=== PATIENT | male | born 1970 | race Caucasian/White ===

== ENCOUNTER 2021-10-18 11:27 | Inpatient (IN) | payer SELFPAY ==
[2021-10-18 11:58] VITALS: BMI 21.2
[2021-10-18] MEDS ORDERED: MAG HYDROX/AL HYDROX/SIMETH 30 ML UNIT-DOSE CUP PO PRN (12:27)
[2021-10-18] MEDS ORDERED: MENTHOL/PHENOL 1 EACH UD MM PRN (12:27)
[2021-10-18] MEDS ORDERED: BISMUTH SUBSALICYLATE 524 MG/30 ML PO PRN (12:27)
[2021-10-18] MEDS ORDERED: METHOCARBAMOL 500 MG TABLET PO PRN (12:27)
[2021-10-18] MEDS ORDERED: IBUPROFEN 400 MG TABLET (FP) PO PRN (12:27)
[2021-10-18] MEDS ORDERED: chlordiazePOXIDE HCL 25 MG CAPSULE PO ONE (12:27)
[2021-10-18] MEDS ORDERED: MAGNESIUM CITRATE 300 ML BOTTLE PO PRN (12:27)
[2021-10-18] MEDS ORDERED: chlordiazePOXIDE HCL 25 MG CAPSULE PO PRN (12:27)
[2021-10-18] MEDS ORDERED: ONDANSETRON *ODT* 4 MG TABLET SL PRN (12:27)
[2021-10-18] MEDS ORDERED: MAGNESIUM HYDROX 2400MG/30ML ORAL SUSPENSION 30 ML CUP PO PRN (12:27)
[2021-10-18] MEDS ORDERED: NICOTINE 10 MG CARTRIDGE (INHALER) IH PRN (12:27)
[2021-10-18] MEDS ORDERED: ACETAMINOPHEN 325 MG TABLET (FP) PO PRN ×2 (12:27)
[2021-10-18] MEDS ORDERED: cloNIDine HCL 0.1 MG TABLET PO PRN (12:49)
[2021-10-18] MEDS ORDERED: methaDONE HCL 10 MG TABLET (FOR DETOX USE ONLY) PO ONE (12:49)
[2021-10-18] MEDS ORDERED: hydrOXYzine PAMOATE 25 MG CAPSULE (FP) PO SCH (14:00)
[2021-10-18] MEDS: PRENATAL VITAMINS W/ FOLIC ACID TABLET (FP) PO SCH (15:30)
[2021-10-18] MEDS: chlordiazePOXIDE HCL 25 MG CAPSULE PO SCH ×2 (18:28→22:29)
[2021-10-18] MEDS: THIAMINE HCL 100 MG TABLET (FP) PO SCH (22:29)
[2021-10-18] MEDS: MELATONIN 5 MG TABLETS PO SCH (22:29)
[2021-10-19] MEDS: chlordiazePOXIDE HCL 25 MG CAPSULE PO SCH ×4 (05:42→22:16)
[2021-10-19] MEDS ORDERED: methaDONE HCL 10 MG TABLET (FOR DETOX USE ONLY) ONE (09:43)
[2021-10-19] MEDS: PRENATAL VITAMINS W/ FOLIC ACID TABLET (FP) PO SCH (10:20)
[2021-10-19] MEDS: THIAMINE HCL 100 MG TABLET (FP) PO SCH (22:15)
[2021-10-19] MEDS: MELATONIN 5 MG TABLETS PO SCH (22:16)
[2021-10-20] MEDS: chlordiazePOXIDE HCL 25 MG CAPSULE PO SCH ×4 (05:46→22:10)
[2021-10-20] MEDS ORDERED: MODERNA COVID-19 VACC,MRNA/PF 50 MCG/0.25 ML EACH IM ONE (10:00)
[2021-10-20] MEDS ORDERED: methaDONE HCL 10 MG TABLET (FOR DETOX USE ONLY) PO ONE (10:00)
[2021-10-20] MEDS: PRENATAL VITAMINS W/ FOLIC ACID TABLET (FP) PO SCH (10:19)
[2021-10-20 12:31] LABS: HEMATOCRIT 44.5 % (35.4-49); HEMOGLOBIN 14.5 GM/dL (11.7-16.9); MCH 27.6 pg (25.7-33.7); MCHC 32.6 g/dl (32.0-35.9); MEAN CELL VOLUME 84.9 fl (80-96); MEAN PLT VOLUME 7.4 fl (7.5-11.1); PLATELET COUNT 463 10^3/uL (134-434); RBC 5.25 M/mm3 (4.00-5.60); RDW 13.6 % (11.9-15.9); WHITE BLOOD COUNT 7.2 K/mm3 (4.0-10.0)
[2021-10-20 12:50] LABS: CALCIUM 9.6 mg/dL (8.5-10.1)
[2021-10-20 12:51] LABS: ALBUMIN 3.6 g/dl (3.4-5.0)
[2021-10-20 12:55] LABS: BLOOD UREA NITROGEN 13.4 mg/dL (7-18)
[2021-10-20 12:58] LABS: CREATININE 0.9 mg/dL (0.55-1.3)
[2021-10-20 13:00] LABS: BILIRUBIN,TOTAL 0.3 mg/dL (0.2-1)
[2021-10-20 13:01] LABS: TOT PROT 6.7 g/dl (6.4-8.2)
[2021-10-20] MEDS: THIAMINE HCL 100 MG TABLET (FP) PO SCH (22:12)
[2021-10-20] MEDS: MELATONIN 5 MG TABLETS PO SCH (22:12)
[2021-10-21] MEDS ORDERED: chlordiazePOXIDE HCL 10 MG CAPSULE PO PRN
[2021-10-21] MEDS: chlordiazePOXIDE HCL 10 MG CAPSULE PO SCH ×4 (05:50→22:51)
[2021-10-21] MEDS ORDERED: methaDONE HCL 10 MG TABLET (FOR DETOX USE ONLY) ONE (08:58)
[2021-10-21] MEDS: PRENATAL VITAMINS W/ FOLIC ACID TABLET (FP) PO SCH (10:21)
[2021-10-21] MEDS: MELATONIN 5 MG TABLETS PO SCH (22:50)
[2021-10-21] MEDS: THIAMINE HCL 100 MG TABLET (FP) PO SCH (22:50)
[2021-10-22] MEDS ORDERED: chlordiazePOXIDE HCL 10 MG CAPSULE PO SCH (05:00)
[2021-10-22 09:24] VITALS: BP 113/63; PULSE 96; TEMP 97.6
[2021-10-22] MEDS ORDERED: methaDONE HCL 10 MG TABLET (FOR DETOX USE ONLY) PO ONE (10:00)
[2021-10-22] MEDS: PRENATAL VITAMINS W/ FOLIC ACID TABLET (FP) PO SCH (10:19)
[2021-10-23] MEDS ORDERED: chlordiazePOXIDE HCL 10 MG CAPSULE PO ONE (05:00)
== END 2021-10-22 11:13 | disposition home or self-care (01) | DRG 773 ==
LOC: YASAS 11:27 → Y3N 12:57
PROVIDERS: ADMIT Allergy & Immunology; ATTEND Allergy & Immunology
PROC: HZ2ZZZZ Detoxification Services for Substance Abuse Treatment (ICD-10-PCS; principal; 2021-10-18)
DX: F11.23 Opioid dependence with withdrawal (principal); F10.230 Alcohol dependence with withdrawal, uncomplicated; F14.20 Cocaine dependence, uncomplicated; F12.20 Cannabis dependence, uncomplicated; F17.210 Nicotine dependence, cigarettes, uncomplicated; F31.9 Bipolar disorder, unspecified; F19.24 Other psychoactive substance dependence with psychoactive substance-induced mood disorder; I25.2 Old myocardial infarction; R03.1 Nonspecific low blood-pressure reading; R10.814 Left lower quadrant abdominal tenderness; Z86.73 Personal history of transient ischemic attack (TIA), and cerebral infarction without residual deficits; Z56.0 Unemployment, unspecified; Z59.00 Homelessness unspecified
CPT/HCPCS: 36415; 80053; 85027; 86780; 93005; 93010; C9803; U0003; U0005

== ENCOUNTER 2023-08-03 08:16 | Inpatient (IN) | payer OTHER ==
[2023-08-03 09:21] VITALS: BMI 19.8
[2023-08-03] MEDS ORDERED: ACETAMINOPHEN 325 MG TABLET (FP) PO PRN (10:27)
[2023-08-03] MEDS ORDERED: MAGNESIUM HYDROX 2400MG/30ML ORAL SUSPENSION 30 ML CUP PO PRN (10:27)
[2023-08-03] MEDS ORDERED: NALOXONE HCL 0.4 MG/ML VIAL IM PRN (10:27)
[2023-08-03] MEDS ORDERED: POLYETHYLENE GLYCOL (HEALTHYLAX) 3350 17 GM PACKET PO PRN (10:27)
[2023-08-03] MEDS ORDERED: hydrOXYzine PAMOATE 25 MG CAPSULE (FP) PO PRN (10:27)
[2023-08-03] MEDS ORDERED: NICOTINE POLACRILEX 2 MG GUM BUC PRN (10:27)
[2023-08-03] MEDS ORDERED: guaiFENesin 600 MG TABLET.ER (FP) PO PRN (10:27)
[2023-08-03] MEDS ORDERED: NALOXONE HCL (KLOXXADO) 8 MG SPRAY NS PRN (10:27)
[2023-08-03] MEDS ORDERED: MAG HYDROX/AL HYDROX/SIMETH 30 ML UNIT-DOSE CUP PO PRN (10:27)
[2023-08-03] MEDS ORDERED: IBUPROFEN 400 MG TABLET (FP) PO PRN (10:27)
[2023-08-03] MEDS ORDERED: IBUPROFEN 600 MG TABLET (FP) PO PRN (10:27)
[2023-08-03] MEDS ORDERED: BENZOCAINE/MENTHOL (CHLORASEPTIC ) LOZENGE MM PRN (10:27)
[2023-08-03] MEDS ORDERED: COLLOIDAL OATMEAL 1 BAR EACH TP PRN (10:27)
[2023-08-03] MEDS ORDERED: LOPERAMIDE HCL 2 MG CAPSULE PO PRN (10:27)
[2023-08-03] MEDS ORDERED: BENZONATATE 200 MG CAPSULE PO PRN (10:27)
[2023-08-03] MEDS ORDERED: TUBERCULIN PPD 5 TU/0.1ML VIAL ID ONE (13:33)
[2023-08-03 13:52] VITALS: BP 110/68; PULSE 84; RESP 18; TEMP 97.5
[2023-08-03] MEDS ORDERED: TUBERCULIN PPD 5 TU/0.1ML SYRINGE (IN PATIENT USE ONLY) ID ONE (14:00)
[2023-08-03] MEDS ORDERED: THIAMINE HCL 100 MG TABLET (FP) PO SCH (22:00)
[2023-08-03] MEDS ORDERED: MELATONIN 5 MG TABLETS PO SCH (22:00)
[2023-08-04] MEDS ORDERED: PRENATAL VITAMINS W/ FOLIC ACID TABLET (FP) PO SCH (10:00)
[2023-08-04] MEDS ORDERED: NICOTINE 21 MG/24 HOURS TOPICAL PATCH TD SCH (10:00)
[2023-08-04] MEDS ORDERED: TUBERCULIN PPD 5 TU/0.1ML SYRINGE (IN PATIENT USE ONLY) ID ONE (12:00)
== END 2023-08-03 15:29 | disposition home or self-care (01) | DRG 772 ==
LOC: YASAS 08:16 → Y3W 12:52
PROVIDERS: ADMIT Allergy & Immunology; ATTEND Psychiatry & Neurology Pain Medicine
PROC: HZ42ZZZ Group Counseling for Substance Abuse Treatment, Cognitive-Behavioral (ICD-10-PCS; principal; 2023-08-03)
DX: F11.20 Opioid dependence, uncomplicated (principal); F14.20 Cocaine dependence, uncomplicated; F12.20 Cannabis dependence, uncomplicated; F17.210 Nicotine dependence, cigarettes, uncomplicated; F31.9 Bipolar disorder, unspecified; F20.9 Schizophrenia, unspecified; Z86.73 Personal history of transient ischemic attack (TIA), and cerebral infarction without residual deficits; I25.2 Old myocardial infarction
CPT/HCPCS: 36415; 80307; 87635; 87811; 93005; 93010

== ENCOUNTER 2024-11-02 13:45 | Inpatient (IN) | payer OTHER ==
[2024-11-02] MEDS ORDERED: NICOTINE POLACRILEX 2 MG GUM BUC PRN (15:54)
[2024-11-02] MEDS ORDERED: MAGNESIUM HYDROX 2400MG/30ML ORAL SUSPENSION 30 ML CUP PO PRN (15:54)
[2024-11-02] MEDS ORDERED: BENZOCAINE/MENTHOL (CHLORASEPTIC ) LOZENGE MM PRN (15:54)
[2024-11-02] MEDS ORDERED: IBUPROFEN 400 MG TABLET (FP) PO PRN (15:54)
[2024-11-02] MEDS ORDERED: MAG HYDROX/AL HYDROX/SIMETH 30 ML UNIT-DOSE CUP PO PRN (15:54)
[2024-11-02] MEDS ORDERED: ACETAMINOPHEN 325 MG TABLET (FP) PO PRN (15:54)
[2024-11-02] MEDS ORDERED: NALOXONE (NARCAN) HCL 4 MG/0.1 ML SPRAY NS PRN (15:54)
[2024-11-02] MEDS ORDERED: LOPERAMIDE HCL 2 MG CAPSULE PO PRN (15:54)
[2024-11-02] MEDS ORDERED: guaiFENesin 600 MG TABLET.ER (FP) PO PRN (15:54)
[2024-11-02] MEDS ORDERED: IBUPROFEN 600 MG TABLET (FP) PO PRN (15:54)
[2024-11-02] MEDS ORDERED: POLYETHYLENE GLYCOL (HEALTHYLAX) 3350 17 GM PACKET PO PRN (15:54)
[2024-11-02] MEDS ORDERED: BENZONATATE 200 MG CAPSULE PO PRN (15:54)
[2024-11-02 17:16] VITALS: BMI 21.2
[2024-11-02] MEDS: MELATONIN 5 MG TABLETS PO SCH (21:09)
[2024-11-02] MEDS: THIAMINE 100 MG TABLET PO SCH (21:09)
[2024-11-02] MEDS: hydrOXYzine PAMOATE 25 MG CAPSULE (FP) PO PRN (21:10)
[2024-11-03 06:39] VITALS: RESP 16
[2024-11-03] MEDS: NICOTINE 14 MG/24 HOURS TOPICAL PATCH TD SCH (10:43)
[2024-11-03] MEDS: clonazePAM 1 MG ODT TABLETS SL SCH (10:44)
[2024-11-03] MEDS: PRENATAL VITAMINS W/ FOLIC ACID TABLET (FP) PO SCH (10:45)
[2024-11-03] MEDS ORDERED: PNEUMOC 20-VAL CONJ-DIP CRM/PF 0.5 ML SYRINGE IM ONE (12:00)
[2024-11-03] MEDS ORDERED: FLU VACCINE (FLULAVAL) PF 45 MCG/0.5 ML SYRINGE 2024-2025 IM ONE (12:00)
[2024-11-03 13:52] LABS: HEMATOCRIT 40.2 % (35.4-49); HEMOGLOBIN 13.4 GM/dL (11.7-16.9); MCH 26.9 pg (25.7-33.7); MCHC 33.3 g/dl (32.0-35.9); MEAN CELL VOLUME 80.9 fl (80-96); MEAN PLT VOLUME 7.7 fl (7.5-11.1); PLATELET COUNT 392 10^3/uL (134-434); RBC 4.97 M/mm3 (4.00-5.60); RDW 15.1 % (11.9-15.9); WHITE BLOOD COUNT 8.8 K/mm3 (4.0-10.0)
[2024-11-03] MEDS: PNEUMOC 20-VAL CONJ-DIP CRM/PF 0.5 ML SYRINGE IM ONE (14:32)
[2024-11-03] MEDS: FLU VACCINE (FLULAVAL) PF 45 MCG/0.5 ML SYRINGE 2024-2025 IM ONE (14:34)
[2024-11-03 14:48] LABS: PH,URINE 5.5 (5.0-8.0); URINE APPEARANCE CLEAR; URINE BILIRUBIN NEGATIVE (NEGATIVE); URINE COLOR YELLOW; URINE GLUCOSE (UA) NEGATIVE (NEGATIVE); URINE KETONE NEGATIVE (NEGATIVE); URINE LEUK ESTERASE NEGATIVE (NEGATIVE); URINE NITRITE NEGATIVE (NEGATIVE); URINE PROTEIN NEGATIVE (NEGATIVE); URINE UROBILINOGEN 0.2 mg/dL (0.2-1.0)
[2024-11-03 15:32] LABS: CHLORIDE 108 mmol/L (98-107); POTASSIUM 4.3 mmol/L (3.5-5.1); SODIUM 138 mmol/L (136-145)
[2024-11-03 15:35] LABS: ANION GAP 4 mmol/L (4-13); BLOOD UREA NITROGEN 10.6 mg/dL (7-18); CALCIUM 9.4 mg/dL (8.5-10.1); CO2 26 mmol/L (21-32)
[2024-11-03 15:36] LABS: GLUCOSE,RANDOM 100 mg/dL (74-106)
[2024-11-03 15:38] LABS: SGOT/AST 20 U/L (15-37); SGPT/ALT 25 U/L (13-61)
[2024-11-03 15:39] LABS: CREATININE 0.8 mg/dL (0.55-1.3)
[2024-11-03 15:40] LABS: BILIRUBIN,TOTAL 0.3 mg/dL (0.2-1); TOT PROT 6.2 g/dl (6.4-8.2)
[2024-11-03 15:41] LABS: ALK PHOS 64 U/L (45-117)
[2024-11-03] MEDS: MIRTAZAPINE 15 MG TABLET (FP) PO SCH (21:43)
[2024-11-03] MEDS: DIVALPROEX SODIUM 500 MG TABLET E.C. PO SCH (21:43)
[2024-11-04 06:24] VITALS: BP 103/68; PULSE 83; TEMP 97.7
[2024-11-04] MEDS: NALOXONE (NYS OPIOID OVERDOSE PROGRAM) 4 MG/0.1 ML SPRAY NS SCH (15:30)
== END 2024-11-04 15:30 | disposition left against medical advice (07) | DRG 770 ==
LOC: YASAS 13:45 → Y3E 17:16
PROVIDERS: ADMIT Psychiatry & Neurology Pain Medicine; ATTEND Psychiatry & Neurology Pain Medicine
PROC: HZ42ZZZ Group Counseling for Substance Abuse Treatment, Cognitive-Behavioral (ICD-10-PCS; principal; 2024-11-02)
DX: F14.10 Cocaine abuse, uncomplicated (principal); F12.20 Cannabis dependence, uncomplicated; F17.210 Nicotine dependence, cigarettes, uncomplicated; F31.9 Bipolar disorder, unspecified; F20.9 Schizophrenia, unspecified; F41.9 Anxiety disorder, unspecified; R76.11 Nonspecific reaction to tuberculin skin test without active tuberculosis; I25.2 Old myocardial infarction; Z86.73 Personal history of transient ischemic attack (TIA), and cerebral infarction without residual deficits; Z56.0 Unemployment, unspecified; Z59.00 Homelessness unspecified
CPT/HCPCS: 36415; 71046-TC-FY; 80053; 80305; 80307; 81003; 85027; 86780; 90656; 90677; 93005; 93010; G0008; G0009